=== PATIENT | female | born 1980 | race Caucasian/White ===

== ENCOUNTER 2022-03-03 20:57 | Outpatient (REF) | payer MEDICAID, SELFPAY ==
[2022-03-03 22:27] LABS: FREE T4 0.72 ng/dL (0.76-1.46)
== END 2022-03-03 20:58 | disposition home or self-care (01) ==
LOC: NCHCN 20:57
PROVIDERS: Visit Provider Family Medicine
DX: E03.9 Hypothyroidism, unspecified (principal)
CPT/HCPCS: 84439; 84443

== ENCOUNTER 2022-04-18 15:27 | Outpatient (REF) | payer MEDICAID, SELFPAY ==
--- NOTE | 2022-04-18 13:30 | PAPFT_PTH ---
PATIENT: Marlee Tineo [id number] AGE/SX: 41/F ROOM: RE04/18/[address]: Amanda Marin : 1980 BED: DIS: 04/18/2022 SPEC #: [id number] RECD: 04/19/22 10:23 STATUS: ALIN RETrudy #: [id number] RAKEL: 04/18/22 13:[address]: Amanda Marin DEPT: [facility] Cytology RECD BY: Gianna Matias Tissues: 1 - CX/ENDOCX FOR PAP SMEARS Procedures: PAP THIN PREP/UVM Screening HPV DNA PROBE Comments: [id number] (CHLAMYDIA/GC)
[2022-04-20 12:10] LABS: Chlamydia Result Negative (Negative); GC Result Negative (Negative)
== END 2022-04-18 15:28 | disposition home or self-care (01) ==
LOC: NCHCN 15:27
PROVIDERS: Visit Provider Family Medicine
DX: Z11.3 Encounter for screening for infections with a predominantly sexual mode of transmission (principal); Z12.4 Encounter for screening for malignant neoplasm of cervix; Z11.51 Encounter for screening for human papillomavirus (HPV)
CPT/HCPCS: 87491; 87591; 88142; 87624

== ENCOUNTER 2023-04-13 11:54 | Outpatient (REF) | payer MEDICAID, SELFPAY ==
--- OUTSIDE RECORDS SUMMARY | 2023-04-13 12:04 | XMS_ITS | Patient Health Record ---
Author Name Unknown Organization [facility] Address [address], [address] [place] [address] Care Team Providers Care Electro Mechanical Technologist Name Role Phone Desiree Nuñez Unavailable [phone] Amanda Marin MD Unavailable Unavailable ALLERGIES Allergen (clinical drug ingredient) Drug/Non Drug Allergy documented on EMR Reaction Allergy Type Onset Date Status Dairy Digestive Unknown Drug Allergy A ctive peanut allergenic extract Peanut (Diagnostic) Unknown Drug Allergy Active Gluten Gluten Unknown Allergy Active RESULTS Component Value Reference Range Notes TSH Reviewed date:11/20/2022 08:19:54 AM Interpretation:0.12 L Performing Lab: Notes/Report: TESTING PERFORMED OR REFERRED BY: The [address] [id number] The results of this assay can be falsely lowered due to the consumption of Biotin. TSH 0.12 0.47-4.68 mIU/L T3, REVERSE, S Reviewed date:11/20/2022 08:19:54 AM Interpretation:12 normal Performing Lab: Notes/Report: TESTING PERFORMED OR REFERRED BY: The [address] [address] T3(TRIIODOTHYRONINE),REVERSE,S 12 10-24 ng/d L ADDITIONAL INFORMATION This test was developed and its performance characteristics determined by [facility] in a manner consistent with CLIA requirements. This test has not been cleared or approved by the U.S. Food and Drug Administration. Test Performed by: [address] [address] Cinema Operator: Eh Pardo M.D. Ph.D.; [facility]# [id number] T3, FREE Reviewed date:11/20/2022 08:19:54 AM Interpretation:4.2 normal Performing Lab: Notes/Report: TESTING PERFORMED OR REFERRED BY: The [address] [address] T3 FREE 4.2 2.8-5.3 pg/mL T4, FREE Reviewed date:11/20/2022 08:19:54 AM Interpretation:0.7 L Performing Lab: Notes/Report: TESTING PERFORMED OR REFERRED BY: The [address] [address] T4, FREE 0.7 0.8-2.2 ng/dL REASON FOR REFERRAL No Information MEDICATIONS Medication SIG (Take, Route, Frequency, Duration) Notes Start Date End Date Status KIRT 500 mg Active L-Tryptophan 500 MG 1 capsule at bedtime Orally Once a day Active L-Tyrosine 500 MG 1 capsule Orally Once a day for 30 day(s) Active Glycine 1000 mg Active 5-HTP 200 MG as directed Orally Active DHEA 25 MG as directed Orally Active Fenugreek Active Probiotic Active [place] Thyroid 120 MG 1 tablet on an empty stomach Orally Once a day for 90 days 11/19/2022 Active Zinc Picolinate 100 mg Acti ve Vitamin C 500 MG as directed Orally Active Progesterone compounded 100mg 1 sublingual daily for 90 days 09/13/2022 Active Liothyronine Sodium 5 MCG 1 tablet on an empty stomach Orally Once a day for 90 days 11/19/2022 Active Evening [place] Oil 500 MG as directed Orally Active Vitamin E 300 mg Active Magnesium Oxide 400 MG 1 tablet as needed Orally Once a day for 30 day(s) Active Vitamin D3 250 MCG (73[address] UT) as directed Orally 4x/week Active Turmeric Curcumin 500 MG as directed Orally Active [place] Thyroid 120 MG 1 tablet on an empty stomach Orally Once a day for 30 day(s) Active Vitamin K 550 mcg Active Liothyronine Sodium 5 MCG 1 tablet on an empty stomach Orally Once a day for 30 day(s) Active Nac 600 600 MG 1 capsule Orally Once a day for 30 day(s) Active Multivitamin Active ibuprofen Active Camrese Lo 0.1-0.02 & 0.01 MG 1 tablet Orally Once a day for 91 day(s) Not-Taking DMG Active Quercetin 500 MG as directed Orally Active supplements and vitamins ADHS (adrenal support), ngo iodine Active Melatonin 3 MG 1 tablet at bedtime as needed Orally Once a day for 30 day(s) Active Enzyme with ox bile Active Magnesium Carbonate - as directed Active SOCIAL HISTORY Sex Assigned At : Social History Observation Description Sex Assigned At Unknown PROBLEMS Problem Type ICD Code Onset Dates Problem Status W/U Status Risk SNOMED Code Notes Problem Other specified menopausal and perimenopausal disorders (N95.8) Active confirmed Perimenopa usal disorder (704682547) Problem Hypothyroid (E03.9) Active confirmed Hypothyroid (40957546) Problem Irregular menstruation, unspecified (N92.6) Active confirmed Irregular menstruation (36500115) VITAL SIGNS Blood pressure diastolic 88 11/14/2022 not es bp is typically 110s/70s Height 67 in 09/07/2022 Blood pressure systolic 130 11/14/2022 note s bp is typically 110s/70s Weight 176 lbs 09/07/2022 BMI 27.56 kg/m2 09/07/2022 Encounters Encounter Location Date Provider Diagnosis [facility] [address] [place] [address], [address] [place] [address] 07/12/2022 Desiree Nuñez [facility] [address] [place] [address], [address] [place] [address] 09/07/2022 Desiree Nuñez Irregular menstruation, unspecified N92.6 ; Other specified menopausal and perimenopausal disorders N95.8 ; Hormone replacement therapy Z79.890 and Hypothyroid E03.[address], [address] [place] [address] 09/09/2022 Desiree Nuñez [facility] [address] [place] [address], [address] [place] [address] 09/12/2022 Desiree Nuñez Hormone replacement therapy Z79.[address], [address] [place] [address] 11/14/2022 Desiree Nuñez Irregular menstruation, unspecified N92.6 ; Other specified menopausal and perimenopausal disorders N95.8 ; Hypothyroid E03.9 and Leiomyoma of uterus, unspecified D25.9 [facility] [address] [place] [address], [address] [place] [address] 11/17/2022 Desiree Nuñez Hypothyroid E03.9 [facility] [address], [address] [place] [address] 11/19/2022 Desiree Nuñez [facility] [address], [address] [place] [address] 11/21/2022 Desiree Nuñez [facility] [address], [address] [place] [address] 03/23/2023 Desiree Nuñez [facility] [address], [address] [place] [address] 03/27/2023 Desiree Nuñez ASSESSMENTS Encounter Date Diagnosis Assessment Notes Treatment Notes Treatment Clinical Notes 09/07/2022 Other specified menopausal and perimenopausal disorders (ICD-10 - N95.8) Hormonal changes and resulting symptoms in perimenopause discussed. Pt not feeling well on OCPs, requests alternative tx. Rec progesterone PO qHS, potential side effects, risks and expectations for treatment explained. Potential or eventual need to add estradiol discussed. 09/07/2022 Irregular menstruation, unspecified (ICD-10 - N92.6) Discussed hormonal changes in perimenopause which are likely causing or contributing to AUB. Rec TVUS, will schedule. 09/12/2022 Hormone replacement therapy (ICD-10 - Z79.890) 11/14/2022 Other specified menopausal and perimenopausal disorders (ICD-10 - N95.8) 11/14/2022 Irregular menstruation, unspecified (ICD-10 - N92.6) Discussed TVUS Findings: 5.2 cm right lateral pedunculated fibroid on a 2.2 cm vascular stalk. Otherwise normal TVUS. Check thyroid panel continue progesterone, discussed hormonal changed and resulting menstrual symptoms in perimenopause. 11/17/2022 Hypothyroid (ICD-10 - E03.9) 11/14/2022 Hypothyroid (ICD-10 - E03.9) Labs ordered, consider endocrine consult. 09/07/2022 Hormone replacement therapy (ICD-10 - Z79.890) See above. 11/14/2022 Leiomyoma of uterus, unspecified (ICD-10 - D25.9) Expectations with fibroid in seun and post menopause discussed. Potential symptoms related to fibroid explained. 09/07/2022 Hypothyroid (ICD-10 - E03.9) Continue current Rx, pt requests Rx here. Rec thyroid panel next visit considering hormonal changes. 09/07/2022 Other MDM 4 2+ conditions Rx 11/14/2022 Other Outside of performing the TVUS, I spent a cumulative total of 30 minutes in and around this visit, including within 24 hrs after the visit, caring for this patient, i.e. 5 mins reviewing previous medical history, 20 mins evaluating and counselling the patient, and 5 mins coordinating care and completing the electronic medical record. MDM 4 2+ conditions Labs ordered PLAN OF TREATMENT Next Appt Details Provider Name:Desiree Nuñez , 11/22/2023 02:00:00 PM, [address], [address], [place], [address], Insurance Providers Payer Name Payer Address Payer Phone Subscriber Number Group Number Insured Name Patient Relationship to Insured Coverage Start Date Coverage End Date [place] [address] [place] [address] [phone] [id number] Marlee Tineo Self - patient is the insured MEDICAL (GENERAL) HISTORY Medical History History ICD Code G0 Hypothyroidism VERITO Anxiety and depression Varicose veins Last PAP: 04/18/2022 NIL, neg HPV Surgical History Surgery Date(Month/Year) Cholecystectomy 2001 Tib/fib repair 2002
--- OUTSIDE RECORDS SUMMARY | 2023-04-13 12:05 | XMS_ITS | CCD ---
Author Name Unknown Address [address], [place] [id number] Organization Unknown Address [address], [place] [id number] Care Team Providers Care Washing Machine Loader And Puller Name Role Phone ROHINI GAMBOA Attending Physician [phone] Vital Signs Unknown or Not Available. Allergies Unknown or Not Available. Procedures Unknown or Not Available. History of Immunizations Unknown or Not Available. Problems Unknown or Not Available. Results Unknown or Not Available. Active Medications Unknown or Not Available. Medications Administered During Visit Unknown or Not Available. Encounters Encounter Diagnosis Diagnosis Code Start Date Obstructive sleep apnea (adult) (pediatric) G473 3 07/30/2022 Social History Unknown or Not Available. Patient Decision Aids Unknown or Not Available. Discharge Instructions You were admitted to [facility] on 07/30/2022 19:01 with a principal diagnosis of Obstructive sleep apnea (adult) (pediatric) You were discharged from [facility] on 07/31/2022 06:34 Should you have any questions prior to discharge, please contact a member of your healthcare team. If you have left the hospital and have any questions, please contact your primary care physician. Chief Complaint and Reason For Visit Unknown or Not Available. Function Status Unknown or Not Available. Plan of Care Unknown or Not Available. Referral/Transition of Care Unknown or Not Available.
--- OUTSIDE RECORDS SUMMARY | 2023-04-13 12:05 | XMS_ITS | CCD ---
Author Name Unknown Address [address], [place] [id number] Organization Unknown Address [address], [place] [id number] Care Team Providers Care Clip Baker Name Role Phone ROHINI GAMBOA Attending Physician [phone] Vital Signs Unknown or Not Available. Allergies Unknown or Not Available. Procedures Unknown or Not Available. History of Immunizations Unknown or Not Available. Problems Unknown or Not Available. Results Unknown or Not Available. Active Medications Unknown or Not Available. Medications Administered During Visit Unknown or Not Available. Encounters Encounter Diagnosis Diagnosis Code Start Date Obstructive sleep apnea (adult) (pediatric) G473 3 02/02/2023 Social History Unknown or Not Available. Patient Decision Aids Unknown or Not Available. Discharge Instructions You were admitted to [facility] on 02/02/2023 11:22 with a principal diagnosis of Obstructive sleep apnea (adult) (pediatric) You were discharged from [facility] on 02/02/2023 11:22 Should you have any questions prior to [...]
--- OUTSIDE RECORDS SUMMARY | 2023-04-13 12:05 | XMS_ITS | CCD ---
Author Name Unknown Address [address] [place] [phone] Organization Unknown Address [address] [place] [phone] Care Team Providers Care Newspaper Or Periodical Editor Name Role Phone DEV TAVERA Ella Attending Physician [phone] Vital Signs Unknown or Not Available. Allergies Unknown or Not Available. Procedures Unknown or Not Available. History of Immunizations Unknown or Not Available. Problems Unknown or Not Available. Results Unknown or Not Available. Active Medications Unknown or Not Available. Medications Administered During Visit Unknown or Not Available. Encounters Unknown or Not Available. Social History Unknown or Not Available. Patient Decision Aids Unknown or Not Available. Discharge Instructions You were admitted to [facility] on 03/01/2023 08:52 You were discharged from [facility] Should you have any questions prior to [...]
[2023-04-13 15:14] LABS: FREE T4 0.63 ng/dL (0.76-1.46)
== END 2023-04-13 11:55 | disposition home or self-care (01) ==
LOC: LBN 11:54
PROVIDERS: PCP Family Medicine
DX: N95.8 Other specified menopausal and perimenopausal disorders; R79.89 Other specified abnormal findings of blood chemistry; E03.9 Hypothyroidism, unspecified
CPT/HCPCS: 84439; 84443

== ENCOUNTER 2023-07-18 11:20 | Outpatient (REF) | payer MEDICARE, OTHER, SELFPAY ==
[2023-07-18 15:00] LABS: TSH (W/Ref FT4) 0.69 uIU/mL (0.36-3.74)
== END 2023-07-18 11:21 | disposition home or self-care (01) ==
LOC: LBN 11:20
PROVIDERS: PCP Family Medicine
DX: E03.9 Hypothyroidism, unspecified (principal)
CPT/HCPCS: 84443

== ENCOUNTER 2023-09-13 15:06 | Outpatient (REF) | payer MEDICARE, OTHER, SELFPAY ==
[2023-09-13 16:52] LABS: TSH (W/Ref FT4) 0.22 uIU/mL (0.36-3.74)
[2023-09-13 17:18] LABS: FREE T4 0.79 ng/dL (0.76-1.46)
== END 2023-09-13 15:07 | disposition home or self-care (01) ==
LOC: LBN 15:06
PROVIDERS: PCP Family Medicine; Visit Provider Student in an Organized Health Care Education/Training Program
DX: E03.9 Hypothyroidism, unspecified (principal)
CPT/HCPCS: 84439; 84443

== ENCOUNTER 2023-10-30 15:13 | Outpatient (REF) | payer MEDICARE, OTHER, SELFPAY ==
--- OUTSIDE RECORDS SUMMARY | 2023-10-30 15:18 | XMS_ITS ---
Author Name Unknown Address [address] [place] [phone] Phone Organization Unknown Address [address] [place] [address] [phone] Phone Care Team Providers Care Restaurant Crew Person Name Role Phone COOPER PALACIO Attending Unavail able Social History Type Status Start Date End Date Code Code Syst em Sex Female Hospital Discharge Instructions Should you have any questions prior to discharge, please contact a member of your healthcare team. If you have left the hospital and have any questions, please contact your primary care physician. Reason For Referral No Data Found Plan of Treatment PSG NIGHT 07/30/2022 Encounters Encounter Diagnosis Start Date Code Code Sys tem Obstructive sleep apnea (adult) (pediatric) 07/30/2022 SNOMED-CT Personal Care Team Section Performer Name Performer Role Active Date Inactive Da te
--- OUTSIDE RECORDS SUMMARY | 2023-10-30 15:18 | XMS_ITS ---
Author Name Unknown Address [address] [place] [phone] Phone Organization Unknown Address [address] [place] [phone] Phone Care Team Providers Care Surveyor Helper Rod Name Role Phone COOPER PALACIO Attending Unavail [...] Sys tem Obstructive sleep apnea (adult) (pediatric) 02/02/2023 SNOMED-CT Personal Care Team Section Performer Name Performer Role Active Date Inactive Da te
--- OUTSIDE RECORDS SUMMARY | 2023-10-30 15:18 | XMS_ITS ---
Author Name Unknown Address [address] [place] [phone] Phone Organization Unknown Address [address] [place] [phone] Phone Care Team Providers Care Cooling Machine Operator Name Role Phone LIANG Jaramillo Attending Unavailable Social History Type Status Start Date End [...] Code Code Sys tem Obstructive sleep apnea syndrome 05/04/2022 [id number] SNOMED-CT Personal Care Team Section Performer Name Performer Role Active Date Inactive Da te
--- OUTSIDE RECORDS SUMMARY | 2023-10-30 15:19 | XMS_ITS | Patient Health Record ---
Author Name Unknown Organization [facility] Address [address], [address] [place] [address] Care Team Providers Care Chronic Specialist Name Role Phone Desiree Nuñez Unavailable [phone] Tomas PEÑALOZA, Amanda Unavailable Unavailable Allergies Allergen (clinical drug ingredient) Drug/Non Drug Allergy documented on EMR Reaction Allergy Type Onset Date Status Dairy Digestive Unknown Drug Allergy A ctive peanut allergenic extract Peanut (Diagnostic) Unknown Drug Allergy Active Gluten Gluten Unknown Allergy Active Results Component Value Reference Range Notes T3, REVERSE, S Reviewed date:11/20/2022 08:19:54 AM Interpretation:12 normal Performing Lab: Notes/Report: TESTING PERFORMED OR REFERRED BY: The [address] [address] T3(TRIIODOTHYRONINE),REVERSE,S 12 10-24 ng/d L ADDITIONAL INFORMATION This test was developed and its performance characteristics determined by [facility] in a manner consistent with CLIA requirements. This test has not been cleared or approved by the U.S. Food and Drug Administration. Test Performed by: [facility] [place] [id number] Solar Energy Sales Specialist: Eh Pardo M.D. Ph.D.; CLIA# [id number] T3, FREE Reviewed date:11/20/2022 08:19:54 AM Interpretation:4.2 normal Performing Lab: Notes/Report: TESTING PERFORMED OR REFERRED BY: The [address] [address] T3 FREE 4.2 2.8-5.3 pg/mL T4, FREE Reviewed date:11/20/2022 08:19:54 AM Interpretation:0.7 L Performing Lab: Notes/Report: TESTING PERFORMED OR REFERRED BY: The [address] [address] T4, FREE 0.7 0.8-2.2 ng/dL TSH Reviewed date:11/20/2022 08:19:54 AM Interpretation:0.12 L Performing Lab: Notes/Report: TESTING PERFORMED OR REFERRED BY: The [address] [address] The results of this assay can be falsely lowered due to the consumption of Biotin. TSH 0.12 0.47-4.68 mIU/L Reason For Referral No Information Medications Medication SIG (Take, Route, Frequency, Duration) Notes Start Date End Date Status Progesterone compounded 100mg 1 sublingual daily for 90 days 09/13/2022 Active KIRT 500 mg Active L-Tryptophan 500 MG 1 capsule at bedtime Orally Once a day Active L-Tyrosine 500 MG 1 capsule Orally Once a day for 30 day(s) Active Glycine 1000 mg Active 5-HTP 200 MG as directed Orally Active DHEA 25 MG as directed Orally Active Fenugreek Active Probiotic Active [place] Thyroid 120 MG 1 tablet on an empty stomach Orally Once a day for 90 days 11/19/2022 Active Zinc Picolinate 100 mg Acti ve Vitamin C 500 MG as directed Orally Active Liothyronine Sodium 5 MCG 1 tablet on an empty stomach Orally Once a day for 90 days 11/19/2022 Active Evening [place] Oil 500 MG as directed Orally Active Vitamin E 300 mg Active Magnesium Oxide 400 MG 1 tablet as needed Orally Once a day for 30 day(s) Active Vitamin D3 250 MCG (112[address] UT) as directed Orally 4x/week Active Turmeric Curcumin 500 MG as directed Orally Active [place] Thyroid 120 MG 1 tablet on an [...] Active Magnesium Carbonate - as directed Active Problems Problem Type SNOMED Code ICD Code Onset Dates Problem Status W/U Status Risk Notes Problem Perimenopausal disorder (073523555) Other specified menopausal and perimenopausal disorders (N95.8) Active confirmed Problem Hypothyroid (06803978) Hypothyroid (E03.9) Active confirmed Problem Irregular menstruation (44113455) Irregular menstruation, unspecified (N92.6) Active confirmed Vital Signs Blood pressure diastolic 88 11/14/2022 not es bp is typically 110s/70s Blood pressure systolic 130 11/14/2022 note s bp is typically 110s/70s Encounters Encounter Location Date Provider Diagnosis [facility] [address] [place] [address], [address] [place] [address] 11/14/2022 Desiree Nuñez Irregular menstruation, unspecified N92.6 ; Other specified menopausal and perimenopausal disorders N95.8 ; Hypothyroid E03.9 and Leiomyoma of uterus, unspecified D25.9 [facility] [address] [place] [address], [address] [place] [address] 03/27/2023 Desiree Nuñez [facility] [address] [place] [address], [address] [place] [address] 11/17/2022 Desiree Nñuez Hypothyroid E03.9 [facility] [address] [place] [address], [address] [place] [address] 11/19/2022 Desiree Nuñez [facility] [address] [place] [address], [address] [place] [address] 11/21/2022 Desiree Nuñez [facility] [address] [place] [address], [address] [place] [address] 03/23/2023 Desiree Nuñez [facility] [address] [place] [address], [address] [place] [address] 07/23/2023 Desiree Nuñez [facility] [address] [place] [address], [address] [place] [address] 09/08/2023 Desiree Nuñez Assessments Encounter Date Diagnosis (ICD Code) Assessment Notes Treat ment Notes Treatment Clinical Notes 11/14/2022 Other specified menopausal and perimenopausal disorders [...] - E03.9) Labs ordered, consider endocrine consult. 11/14/2022 Leiomyoma of uterus, unspecified (ICD-10 - D25.9) Expectations with fibroid in seun and post menopause discussed. Potential symptoms related to fibroid explained. 11/14/2022 Other Outside of performing the TVUS, I spent a cumulative total of 30 minutes in and around this visit, including within 24 hrs after the visit, caring for this patient, i.e. 5 mins reviewing previous medical history, 20 mins evaluating and counselling the patient, and 5 mins coordinating care and completing the electronic medical record. MDM 4 2+ conditions Labs ordered Plan Of Treatment Next Appt Details Provider Name:Desiree Nuñez , 11/22/2023 02:00:00 PM, [address] , [address], [place], [address], Insurance Providers Payer Name Payer Address Payer Phone Subscriber Number Group Number Insured Name Patient Relationship to Insured Coverage Start Date Coverage End Date [place] [address] [place] [id number] Marlee Tineo Self - patient is the insured Medical (General) History Medical History History ICD Code G0 Hypothyroidism VERITO Anxiety and depression Varicose veins Last PAP: 04/18/2022 NIL, neg HPV Surgical History Surgery Date(Month/Year) Cholecystectomy 2001 Tib/fib repair 2002
[2023-10-30 21:45] LABS: Anion Gap 9.1 mmol/L (3-11); BUN 10 mg/dL (7-18); CO2 29.9 mmol/L (21.0-32.0); CREATININE 0.8 mg/dL (0.55-1.02); Calcium 9.4 mg/dL (8.5-10.1); Calculated LDL 98 mg/dL (<100); Chloride 103 mmol/L (98-107); Cholesterol 170 mg/dL (<200); Estimated GFR 93.12 (mL/min/1.73m2); Glucose 90 mg/dL (74-106); HDL Cholesterol 66 mg/dL (40-60); Potassium 3.9 mmol/L (3.5-5.1); Sodium 142 mmol/L (136-145); Triglyceride 33 mg/dL (<150)
[2023-10-30 22:07] LABS: Vitamin D 25 Total 57.7 ng/mL (30-100)
== END 2023-10-30 15:14 | disposition home or self-care (01) ==
LOC: NCHCN 15:13
PROVIDERS: Student in an Organized Health Care Education/Training Program; PCP Family Medicine; Visit Provider Family Medicine
DX: E66.3 Overweight (principal); E03.9 Hypothyroidism, unspecified; E55.9 Vitamin D deficiency, unspecified
CPT/HCPCS: 80048; 80061; 82306; 84443

== ENCOUNTER 2024-01-15 13:39 | Outpatient (REF) | payer MEDICARE, OTHER, SELFPAY ==
[2024-01-15 21:58] LABS: Calcium 8.8 mg/dL (8.5-10.1); PHOSPHORUS 4.7 mg/dL (2.6-4.7)
== END 2024-01-15 13:40 | disposition home or self-care (01) ==
LOC: LBN 13:39
PROVIDERS: PCP Family Medicine; Visit Provider Student in an Organized Health Care Education/Training Program
DX: E20.9 Hypoparathyroidism, unspecified (principal)
CPT/HCPCS: 82310; 84100

== ENCOUNTER 2024-02-21 19:17 | Outpatient (REF) | payer MEDICARE, OTHER, SELFPAY ==
[2024-02-21 18:19] LABS: ALT 22 U/L (14-59); AST 21 U/L (15-37); Albumin 3.4 g/dL (3.4-5.0); Alkaline Phosphatase 97 U/L (46-116); Anion Gap 4.9 mmol/L (3-11); BUN 16 mg/dL (7-18); Bilirubin, Total 0.35 mg/dL (0.2-1.0); CO2 32.1 mmol/L (21.0-32.0); CREATININE 0.8 mg/dL (0.55-1.02); Calcium 8.5 mg/dL (8.5-10.1); Chloride 110 mmol/L (98-107); Estimated GFR 93.12 (mL/min/1.73m2); Glucose 85 mg/dL (74-106); PHOSPHORUS 3.8 mg/dL (2.6-4.7); Potassium 4.8 mmol/L (3.5-5.1); Sodium 147 mmol/L (136-145); TSH (W/Ref FT4) 0.03 uIU/mL (0.36-3.74); Total Protein 6.8 g/dL (6.4-8.2)
[2024-02-21 18:41] LABS: FREE T4 0.91 ng/dL (0.76-1.46)
[2024-02-22 18:53] LABS: Parathyroid Hormone,Intact 19 pg/mL (19-88)
[2024-02-22 18:58] LABS: Thyroglobulin Antibody <15 U/mL (<=60)
== END 2024-02-21 19:18 | disposition home or self-care (01) ==
LOC: LBN 19:17
PROVIDERS: PCP Family Medicine; Visit Provider Student in an Organized Health Care Education/Training Program
DX: E20.9 Hypoparathyroidism, unspecified (principal)
CPT/HCPCS: 80053; 83970; 84100; 84439; 84443; 86800

== ENCOUNTER 2024-03-24 15:17 | Outpatient (REF) | payer MEDICARE, OTHER, SELFPAY ==
[2024-03-24 15:56] LABS: Albumin 3.9 g/dL (3.4-5.0); Calcium 8.6 mg/dL (8.5-10.1); PHOSPHORUS 4.2 mg/dL (2.6-4.7)
[2024-03-24 22:42] LABS: Parathyroid Hormone,Intact 16.5 pg/mL (19.0-88.0)
[2024-03-25 18:40] LABS: Thyroglobulin Antibody <1.8 IU/mL (<1.8); Thyroglobulin Tumor Marker 0.1 ng/mL
== END 2024-03-24 15:18 | disposition home or self-care (01) ==
LOC: LBN 15:17
PROVIDERS: PCP Family Medicine; Visit Provider Student in an Organized Health Care Education/Training Program
DX: E20.9 Hypoparathyroidism, unspecified (principal); C73 Malignant neoplasm of thyroid gland
CPT/HCPCS: 82040; 82310; 83970; 84100; 84432; 86800

== ENCOUNTER 2024-07-25 17:07 | Outpatient (REF) | payer MEDICARE, OTHER, SELFPAY ==
[2024-07-25 15:55] LABS: FREE T4 0.65 ng/dL (0.76-1.46); Magnesium 2.3 mg/dL (1.8-2.4); PHOSPHORUS 4.4 mg/dL (2.6-4.7); TSH 1.59 uIU/mL (0.36-3.74)
[2024-07-25 22:55] LABS: Parathyroid Hormone,Intact 18.1 pg/mL (19.0-88.0)
[2024-07-28 12:16] LABS: Thyroglobulin Antibody <1.8 IU/mL (<1.8); Thyroglobulin Tumor Marker 0.2 ng/mL (< or = 33)
[2024-08-06 10:27] LABS: Misc Referral (UVM) See Comments
== END 2024-07-25 17:08 | disposition home or self-care (01) ==
LOC: NCHCN 17:07
PROVIDERS: Student in an Organized Health Care Education/Training Program; PCP Family Medicine; Visit Provider Family Medicine
DX: Z85.850 Personal history of malignant neoplasm of thyroid (principal); Z09 Encounter for follow-up examination after completed treatment for conditions other than malignant neoplasm
CPT/HCPCS: 82310; 83735; 83970; 84100; 84432; 84439; 84443; 86800

== ENCOUNTER 2024-08-29 14:23 | Outpatient (REF) | payer MEDICARE, OTHER, SELFPAY ==
[2024-08-29 16:32] LABS: FREE T4 0.63 ng/dL (0.76-1.46); Magnesium 2.3 mg/dL (1.8-2.4); PHOSPHORUS 4.5 mg/dL (2.6-4.7); TSH 2.89 uIU/mL (0.36-3.74)
[2024-08-29 23:04] LABS: Parathyroid Hormone,Intact 15 pg/mL (19-88)
[2024-09-02 12:50] LABS: Thyroglobulin Antibody <1.8 IU/mL (<1.8); Thyroglobulin Tumor Marker 0.3 ng/mL (< or = 33)
[2024-09-03 08:53] LABS: Misc Referral (UVM) See Comments
== END 2024-08-29 14:24 | disposition home or self-care (01) ==
LOC: LBN 14:23
PROVIDERS: PCP Family Medicine; Visit Provider Student in an Organized Health Care Education/Training Program
DX: E20.9 Hypoparathyroidism, unspecified (principal); C73 Malignant neoplasm of thyroid gland
CPT/HCPCS: 82310; 83735; 83970; 84100; 84432; 84439; 84443; 86800

== ENCOUNTER 2024-12-29 16:41 | Outpatient (REF) | payer MEDICARE, OTHER, SELFPAY ==
[2024-12-29 21:04] LABS: HCT 42.3 % (36.0-46.0); HGB 14.3 g/dL (11.2-15.7); MCH 33.6 pg (27.0-33.0); MCHC 33.8 % (32.0-36.0); MCV 99 fL (80-95); MPV 9.6 fL (8.0-11.0); Platelet Count 271 10^3/uL (130-400); RBC 4.26 10^6/uL (3.93-5.22); RDW 12.1 % (11.7-14.6); RDW-SD 43.9 fL; WBC 5.20 10^3/uL (4.4-10.8)
[2024-12-29 21:44] LABS: ALT 29 U/L (14-59); AST 15 U/L (15-37); Albumin 4.2 g/dL (3.4-5.0); Alkaline Phosphatase 83 U/L (46-116); Anion Gap 6.3 mmol/L (3-11); BUN 15 mg/dL (7-18); Bilirubin, Total 0.5 mg/dL (0.2-1.0); CO2 33.7 mmol/L (21.0-32.0); Calcium 8.6 mg/dL (8.5-10.1); Chloride 104 mmol/L (98-107); Estimated GFR 92.54 (mL/min/1.73m2); Glucose 93 mg/dL (74-106); Potassium 4.6 mmol/L (3.5-5.1); Sodium 144 mmol/L (136-145); Total Protein 7.3 g/dL (6.4-8.2); Vitamin B12 1247 pg/mL (193-986)
[2024-12-29 21:49] LABS: Folate > 20.0 ng/mL (8.6-20.0)
== END 2024-12-29 16:42 | disposition home or self-care (01) ==
LOC: NCHCN 16:41
PROVIDERS: PCP Family Medicine; Visit Provider Family Medicine
DX: R42 Dizziness and giddiness (principal)
CPT/HCPCS: 80053; 85027; 82607; 82746